=== PATIENT | male | born 1950 | race Asian ===

== ENCOUNTER 2023-01-13 21:08 | Inpatient (IN) | payer MEDICARE, OTHER ==
[~2023-01-13] VITALS: Ht 160 cm; Wt 81.6 kg
[2023-01-13] MEDS ORDERED: MAGNESIUM HYDROXIDE 30 ML UDC PO PRN (22:00)
[2023-01-13] MEDS ORDERED: ACETAMINOPHEN 325 MG TABLET PO PRN (22:00)
[2023-01-13] MEDS ORDERED: MAG HYDROX/AL HYDROX/SIMETH 30 ML UDC PO PRN (22:00)
--- NOTE | 2023-01-13 22:00 | NUR ---
GPS ADMISSION NOTE, RECEIVED PATIENT FROM [facility] / [facility]UL[facility]. PATIENT ARRIVED ON THIS UNIT AT 2200 VIA STRETCHER WITH 2 EMT ESCORTS. PATIENT ADMITTED ON A 5150 HOLD FOR GD. PER HOLD PATIENT HAS BEEN AGITATED, ERRATIC, AND RAMBLING INCOHERENTLY. PATIENT HAS NO VIABLE PLAN FOR SELF CARE AT THIS TIME AND UNABLE TO ANSWER BASIC QUESTIONS DUE TO HIS MENTAL ILLNESS. THE 5150 WAS REVIEWED AND THE DOCUMENTATION IN THE 5150 HOLD APPEARS TO REFLECT THE PRESENTATION OF THE PATIENT. UPON FACE TO FACE ASSESSMENT PATIENT IS NOTED TO BEING HYPERVERBAL, DISHEVELED, DISORGANIZED, CONFUSED, UNCOOPERATIVE, AND NEEDS REDIRECTION. PATIENT IS CURRENTLY LYING IN BED AWAKE, HAS NO S/S OR COMPLAINTS OF PAIN. PATIENT IS DISPLAYING NO S/S OF APPARENT DISTRESS. PATIENT BREATHING IS UNLABORED WITH EQUAL RISE AND FALL OF THE CHEST. PATIENT IS ALERT AND ORIENTATED X 1-2 ON ROOM AIR. PATIENT ASSISTED WITH TURING AND REPOSITIONING Q2HR AND PRN FOR COMFORT AND CIRCULATION. PATIENT HAS NO NEEDS AT THIS TIME. PATIENT DENIES SUICIDE IDEATIONS AND HOMICIDAL IDEATIONS AT THIS TIME. PATIENT REFUSED TO SIGNS ANY PAPER WORK. PATIENT ADVISED OF HIS HOLD AND PATIENT RIGHTS BOOKLET GIVEN. PATIENT IS UNDER THE PSYCHIATRIC CARE OF DR. MYERS AND THE MEDICAL CARE OF DR MORENO. PATIENT BELONGINGS WERE INVENTORIED AND CHECKED FOR CONTRABAND. ALL CONTRABAND REMOVED AND STORED IN PATIENT HALLWAY LOCKER. PATIENT ADVANCED DIRECTIVES PREFERENCE, IMMUNIZATIONS QUESTIONER, NECESSARY PAPERWORK COMPLETED. PATIENT REFUSED SKIN ASSESSMENT. PATIENT ORIENTATED TO ROOM, FLOOR, AND STAFF WITH ALL QUESTIONS ANSWERED. PATIENT EDUCATED ON THE USE OF THE CALL MERLOS. PATIENT BED SIDE RAILS ARE UP X 2 FOR SAFETY. PATIENT BED IS LOCKED, LOW, AND I WILL CONTINUE TO MONITOR THIS PATIENT Q 15 MIN WITH THE HELP OF STAFF TO MAINTAIN SAFETY.
[2023-01-13] MEDS ORDERED: DOCU250C14 PO (22:26)
[2023-01-13] MEDS ORDERED: ATEN100T PO (22:26)
[2023-01-13] MEDS ORDERED: HYDR50TA4 PO (22:26)
[2023-01-13] MEDS ORDERED: AMLO-213 PO (22:27)
[2023-01-13] MEDS ORDERED: OMEP20CA15 PO (22:28)
[2023-01-13] MEDS ORDERED: LEVO5TAB13 PO (22:29)
[2023-01-13] MEDS ORDERED: LIPA1CAP15 PO (22:31)
[2023-01-13] MEDS ORDERED: LISI40TA13 PO (22:33)
[2023-01-13] MEDS ORDERED: OLOP5DRO22 EACHEYE (22:34)
[2023-01-13] MEDS ORDERED: BLOOD SUGAR DIAGNOSTIC 1 EACH STRIP IN ONE (23:30)
[2023-01-14 00:28] VITALS: BP 167/79; TEMP 97.9
[2023-01-14] MEDS: TEMAZEPAM 7.5 MG CAPSULE PO PRN (01:58)
--- NOTE | 2023-01-14 01:58 | NUR ---
GPS RN NOTE, PATIENT HAS A COMPLAINT OF NOT BEING ABLE TO SLEEP AND IS REQUESTING RESTORIL AT THIS TIME. PATIENT VITAL SIGNS ARE STABLE. GAVE RESTORIL 7.5MG PO HS PRN ORDERED. WILL REASSESS FOR INSOMNIA AND I WILL CONTINUE TO MONITOR THIS PATIENT WITH THE HELP OF STAFF.
[2023-01-14] MEDS: PANTOPRAZOLE 40 MG TABLET.DR PO SCH (07:30)
[2023-01-14 08:00] VITALS: BP 151/83; TEMP 98.2; O2SAT 98
[2023-01-14] MEDS: LIPASE/PROTEASE/AMYLASE 1 EACH CAPSULE.DR PO SCH ×3 (08:00→17:46)
[2023-01-14] MEDS: HYDROCHLOROTHIAZIDE 25 MG TABLET PO SCH (09:00)
[2023-01-14] MEDS: DOCUSATE SODIUM 250 MG CAPSULE PO SCH ×2 (09:00→17:00)
[2023-01-14] MEDS: OLOPATADINE HCL 0.1% OPHTH BOTTLE EACHEYE SCH (09:00)
[2023-01-14] MEDS: LISINOPRIL (20MG) 20 MG TABLET PO SCH (09:00)
[2023-01-14] MEDS: ATENOLOL 50 MG TABLET PO SCH (09:00)
[2023-01-14] MEDS ORDERED: AMYLASE/LIPASE/PROTEASE 1 CAP.EC PO SCH (09:00)
[2023-01-14] MEDS: AMLODIPINE BESYLATE 10 MG TABLET PO SCH (09:00)
[2023-01-14] MEDS ORDERED: HYDROCHLOROTHIAZIDE 50 MG TABLET PO SCH (09:00)
[2023-01-14] MEDS: DIVALPROEX SODIUM 125 MG CAP.SPRINK PO SCH ×3 (09:24→17:00)
[2023-01-14] MEDS: OLANZAPINE ZYDIS 5 MG TAB.RAPDIS PO SCH ×3 (09:25→22:00)
[2023-01-14] MEDS: cetrizine 10 MG TABLET PO SCH (09:25)
[2023-01-14 16:00] VITALS: BP 173/87; TEMP 97.8; O2SAT 99
--- NOTE | 2023-01-14 18:49 | NUR ---
NURSE NOTE: PT REFUSED MEDS THROUGHOUT SHIFT. ENCOURAGED MULT TIMES. PT REFUSED EACH TIME.
[2023-01-14 20:29] VITALS: BP 175/81; TEMP 98.1; O2SAT 98
[2023-01-14] MEDS: clonazePAM 0.5 MG TABLET PO PRN (21:14)
[2023-01-14] MEDS ORDERED: LORAZEPAM INJ 2 MG/ML VIAL IM ONE (22:30)
[2023-01-14] MEDS ORDERED: OLANZAPINE 10 MG VIAL IM ONE (22:30)
--- NOTE | 2023-01-14 22:45 | NUR ---
NURSE NOTE: AROUND 2220 PT WAS ACTING ERRATIC, RESTLESS, SAYING THAT HE WANTS TO . HE WAS UNABLE TO BE REDIRECTED. DR MYERS NOTIFIED. DR MYERS ORDERED. ZYPREXA 5 MG IM AND ATIVAN 1 MG IM. BOTH ZYPREXA AND ATIVAN ADMIN TO GLUTEUS MAX. PT DAKOTA WELL. WILL CONT TO MONITOR.
[2023-01-15] MEDS: PANTOPRAZOLE 40 MG TABLET.DR PO SCH (07:30)
[2023-01-15 08:00] VITALS: BP 176/79; TEMP 97.7; O2SAT 98
[2023-01-15] MEDS: LIPASE/PROTEASE/AMYLASE 1 EACH CAPSULE.DR PO SCH ×3 (08:00→17:29)
[2023-01-15] MEDS: DIVALPROEX SODIUM 125 MG CAP.SPRINK PO SCH ×3 (08:59→16:59)
[2023-01-15] MEDS: OLOPATADINE HCL 0.1% OPHTH BOTTLE EACHEYE SCH (08:59)
[2023-01-15] MEDS: HYDROCHLOROTHIAZIDE 25 MG TABLET PO SCH (08:59)
[2023-01-15] MEDS: DOCUSATE SODIUM 250 MG CAPSULE PO SCH ×2 (08:59→16:58)
[2023-01-15] MEDS: LISINOPRIL (20MG) 20 MG TABLET PO SCH (09:00)
[2023-01-15] MEDS: cetrizine 10 MG TABLET PO SCH (09:00)
[2023-01-15] MEDS: ATENOLOL 50 MG TABLET PO SCH (09:00)
[2023-01-15] MEDS: AMLODIPINE BESYLATE 10 MG TABLET PO SCH (09:00)
[2023-01-15] MEDS: OLANZAPINE ZYDIS 5 MG TAB.RAPDIS PO SCH ×2 (09:00→21:32)
--- NOTE | 2023-01-15 09:26 | NUR ---
GE Initial Discharge Note: Patient currently resides at home located [address] [place] [address]. GE will contact pt's /son Brock ([phone]) to discuss treatment/discharge plan. GE will work with the MD, family, and treatment team to help coordinate appropriate discharge.
--- NOTE | 2023-01-15 09:27 | NUR ---
GE Clinical Note: Pt placed on a 5150 hold for GD. Per hold, pt has been agitated at home. Patient currently resides at home located [address] [place] [address]. GE will contact pt's /son Brock ([phone]) to discuss treatment/discharge plan.
--- NOTE | 2023-01-15 11:28 | NUR ---
Patient with increased agitation, shouting and hitting medical personnel was ordered zyprexa im 5mg and ativan inj 1mg, given both at 1128. Charge nurse and aware
[2023-01-15] MEDS ORDERED: LORAZEPAM INJ 2 MG/ML VIAL IM ONE (11:30)
[2023-01-15] MEDS ORDERED: OLANZAPINE 10 MG VIAL IM ONE (11:30)
--- NOTE | 2023-01-15 14:25 | NUR ---
GE Family Contact: GE contacted pt's Nona ([phone]) and attempted to discuss treatment/discharge plan. However, she stated she does not speak Tajik and would want this race and sports book writer to contact son Brock ([phone]). GE contacted pt's son and left a detailed voicemail.
[2023-01-15 19:06] LABS: THYROID STIMULATING HORMONE 1.679 uIU/mL (0.358-3.74)
[2023-01-15 20:17] VITALS: BP 160/92; TEMP 98; O2SAT 98
[2023-01-15] MEDS: TEMAZEPAM 7.5 MG CAPSULE PO PRN (23:01)
--- NOTE | 2023-01-15 23:01 | NUR ---
RN NOTES:- PATIENT UNABLE TO SLEEP PRN RESTORIL 7.5MG PO GIVEN PER PATIENT REQUEST , WILL CONTINUE TO MONITOR.
[2023-01-16] MEDS: clonazePAM 0.5 MG TABLET PO PRN (01:43)
[2023-01-16] MEDS: LIPASE/PROTEASE/AMYLASE 1 EACH CAPSULE.DR PO SCH ×4 (08:19→18:00)
[2023-01-16] MEDS: PANTOPRAZOLE 40 MG TABLET.DR PO SCH (08:20)
[2023-01-16] MEDS: DIVALPROEX SODIUM 125 MG CAP.SPRINK PO SCH ×3 (08:20→17:55)
[2023-01-16] MEDS: cetrizine 10 MG TABLET PO SCH (08:20)
[2023-01-16] MEDS: OLANZAPINE ZYDIS 5 MG TAB.RAPDIS PO SCH ×2 (08:21→21:11)
[2023-01-16] MEDS: DOCUSATE SODIUM 250 MG CAPSULE PO SCH ×3 (08:21→17:55)
[2023-01-16] MEDS: ATENOLOL 50 MG TABLET PO SCH (08:45)
[2023-01-16] MEDS: HYDROCHLOROTHIAZIDE 25 MG TABLET PO SCH (08:46)
[2023-01-16] MEDS: AMLODIPINE BESYLATE 10 MG TABLET PO SCH (08:46)
[2023-01-16] MEDS: LISINOPRIL (20MG) 20 MG TABLET PO SCH (08:46)
[2023-01-16] MEDS: OLOPATADINE HCL 0.1% OPHTH BOTTLE EACHEYE SCH (09:00)
--- NOTE | 2023-01-16 11:46 | NUR ---
RN- NOTES HALDOL 5MG IM, ATIVAN 1MG IM, BENADRYL 25MG IM ORDERED DUE TO PATIENT INCREASED AGITATION, INCREASED AGGRESSION, BANGING ON THE REAL CHAIR TABLE AND CHUA, YELLING PROFANITIES, AND ATTEMPTING TO STRIKE OUT AT STAFF.
[2023-01-16] MEDS ORDERED: diphenhydrAMINE HCL 50 MG/ML VIAL IM ONE (12:00)
[2023-01-16] MEDS ORDERED: HALOPERIDOL LACTATE INJ 5 MG/ML VIAL IM ONE (12:00)
[2023-01-16] MEDS ORDERED: LORAZEPAM INJ 2 MG/ML VIAL IM ONE (12:00)
[2023-01-16 16:00] VITALS: BP 105/83; TEMP 97.9; O2SAT 98
--- NOTE | 2023-01-16 18:58 | NUR ---
RN- NOTES NOTIFIED DR. REID OF NEUROLOGY CONSULT.
[2023-01-16 20:00] VITALS: BP 135/95; TEMP 98; O2SAT 95
[2023-01-17] MEDS: clonazePAM 0.5 MG TABLET PO PRN ×2 (03:57→11:14)
--- NOTE | 2023-01-17 04:00 | NUR ---
PRN KLONOPIN PO MED GIVEN TO PATIENT ORDER DUE TO INCREASED AGITATION, INCREASED AGGRESSION, YELLING AND ATTEMPTING TO STRIKE OUT AT STAFF.
[2023-01-17 08:00] VITALS: BP 123/85; TEMP 97.9; O2SAT 97
[2023-01-17] MEDS: AMLODIPINE BESYLATE 10 MG TABLET PO SCH (08:10)
[2023-01-17] MEDS: LIPASE/PROTEASE/AMYLASE 1 EACH CAPSULE.DR PO SCH ×3 (08:11→17:56)
[2023-01-17] MEDS: HYDROCHLOROTHIAZIDE 25 MG TABLET PO SCH (08:11)
[2023-01-17] MEDS: OLANZAPINE ZYDIS 5 MG TAB.RAPDIS PO SCH ×2 (08:11→21:47)
[2023-01-17] MEDS: DOCUSATE SODIUM 250 MG CAPSULE PO SCH ×2 (08:12→17:56)
[2023-01-17] MEDS: LISINOPRIL (20MG) 20 MG TABLET PO SCH (08:12)
[2023-01-17] MEDS: DIVALPROEX SODIUM 125 MG CAP.SPRINK PO SCH ×2 (08:12→17:56)
[2023-01-17] MEDS: ATENOLOL 50 MG TABLET PO SCH (08:12)
[2023-01-17] MEDS: cetrizine 10 MG TABLET PO SCH (08:13)
[2023-01-17] MEDS: OLOPATADINE HCL 0.1% OPHTH BOTTLE EACHEYE SCH (08:13)
[2023-01-17] MEDS: PANTOPRAZOLE 40 MG TABLET.DR PO SCH (08:15)
--- NOTE | 2023-01-17 09:37 | NUR ---
RNDinoCO: followed up to michelle in [address] when is the REISE HEARING OF THE PT,SHE STATED TO CALL AT 3PM FOR UPDATE.
--- NOTE | 2023-01-17 11:15 | NUR ---
NURSE NOTE: PT AGITATED, BANGING ON TABLE. KLONOPIN PO ADMIN ORDERED. PT DAKOTA WELL. WILL CONT TO MONITOR.
--- NOTE | 2023-01-17 14:41 | NUR ---
RN-CO: DR MYERS CANCELED THE RIESE HEARING FOR TOMM 01/18/23 AT 09:30. SPOKE TO " CHRISTINE [phone] AND VERIFIED THE CANCELATION.
[2023-01-17 16:00] VITALS: BP 164/88; TEMP 98.1; O2SAT 96
[2023-01-17 20:00] VITALS: BP 138/95; TEMP 98; O2SAT 98
[2023-01-17] MEDS: TEMAZEPAM 7.5 MG CAPSULE PO PRN (22:40)
--- NOTE | 2023-01-17 22:40 | NUR ---
PRN RESTORIL 7.5MG GIVEN PER PATIENT'S REQUEST. PATIENT CALM AND COOPERATIVE TO STAFF. ALL NEEDS ATTENDED AND MET. KEPT COMFORTABLE IN BED. SAFETY MEASURE PROVIDED AT ALL TIMES.
[2023-01-18] MEDS: clonazePAM 0.5 MG TABLET PO PRN ×2 (02:58→09:23)
--- NOTE | 2023-01-18 03:07 | NUR ---
PRN KLONOPIN 0.5 MG GIVEN BY PO. PATIENT APPEARS TO BE AGITATED, TRYING TO GET OUT OF BED SHOUTING AND BANGING THE SIDE RAILS. SAFETY MAINTAINS. WILL CONTINUE TO MONITOR.
[2023-01-18 08:00] VITALS: BP 161/89; TEMP 97.6; O2SAT 95
[2023-01-18] MEDS: cetrizine 10 MG TABLET PO SCH (09:00)
[2023-01-18] MEDS: LISINOPRIL (20MG) 20 MG TABLET PO SCH (09:28)
[2023-01-18] MEDS: LIPASE/PROTEASE/AMYLASE 1 EACH CAPSULE.DR PO SCH ×3 (09:30→18:47)
[2023-01-18] MEDS: OLANZAPINE ZYDIS 5 MG TAB.RAPDIS PO SCH ×2 (09:31→21:19)
[2023-01-18] MEDS: HYDROCHLOROTHIAZIDE 25 MG TABLET PO SCH (09:32)
[2023-01-18] MEDS: AMLODIPINE BESYLATE 10 MG TABLET PO SCH (09:32)
[2023-01-18] MEDS: PANTOPRAZOLE 40 MG TABLET.DR PO SCH (09:33)
[2023-01-18] MEDS: DIVALPROEX SODIUM 125 MG CAP.SPRINK PO SCH ×2 (09:33→18:11)
[2023-01-18] MEDS: DOCUSATE SODIUM 250 MG CAPSULE PO SCH ×2 (09:34→18:11)
--- NOTE | 2023-01-18 10:09 | NUR ---
Court Notification: SW attempted to contact pt's son Brock ([phone]) to notify of [phone] but was unavailable.
--- NOTE | 2023-01-18 10:09 | NUR ---
Court Hearing: Patient's court hearing for 0130 was today and it was upheld for GD.
[2023-01-18] MEDS: OLOPATADINE HCL 0.1% OPHTH BOTTLE EACHEYE SCH (11:27)
[2023-01-18] MEDS: ATENOLOL 50 MG TABLET PO SCH (11:29)
[2023-01-18 16:00] VITALS: BP 149/78; TEMP 98; O2SAT 94
[2023-01-18 20:00] VITALS: BP 112/70; TEMP 98.1; O2SAT 98
[2023-01-19 08:00] VITALS: BP 164/78; TEMP 97.8; O2SAT 98
[2023-01-19] MEDS: HYDROCHLOROTHIAZIDE 25 MG TABLET PO SCH (08:39)
[2023-01-19] MEDS: DOCUSATE SODIUM 250 MG CAPSULE PO SCH ×2 (08:39→17:10)
[2023-01-19] MEDS: PANTOPRAZOLE 40 MG TABLET.DR PO SCH (08:39)
[2023-01-19] MEDS: cetrizine 10 MG TABLET PO SCH (08:39)
[2023-01-19] MEDS: LIPASE/PROTEASE/AMYLASE 1 EACH CAPSULE.DR PO SCH ×3 (08:39→17:11)
[2023-01-19] MEDS: LISINOPRIL (20MG) 20 MG TABLET PO SCH (08:39)
[2023-01-19] MEDS: DIVALPROEX SODIUM 125 MG CAP.SPRINK PO SCH ×2 (08:40→17:10)
[2023-01-19] MEDS: AMLODIPINE BESYLATE 10 MG TABLET PO SCH (08:40)
[2023-01-19] MEDS: OLOPATADINE HCL 0.1% OPHTH BOTTLE EACHEYE SCH (08:44)
--- NOTE | 2023-01-19 08:44 | NUR ---
CALLED FOR PATIENT TO COME DOWN FOR CT THAT WAS ORDERED. CHARGE STEFANIE INFORMED MOA THAT THEY WERE WAITING FOR ONE MORE QUALITY ASSURANCE ASSOCIATE IN ORDER FOR PT TO COME DOWN.
[2023-01-19] MEDS: OLANZAPINE ZYDIS 5 MG TAB.RAPDIS PO SCH ×2 (09:05→21:13)
[2023-01-19] MEDS: ATENOLOL 50 MG TABLET PO SCH (09:06)
--- NOTE | 2023-01-19 09:07 | NUR ---
Medication note REMOVED ATENOLOL ONCE, PREVIOUS REGISTERED REMOVED BUT MEDICATION WAS NOT TAKEN FROM OMNICELL WHEN REMOVING MEDICATION. MEDICATION WAS SKIPPED BY MISTAKE WHEN WITHDRAWING MEDICATION. NOTIFIED CHARGE NURSE.
--- NOTE | 2023-01-19 10:50 | NUR ---
GE FAMILY CONTACT: SW ATTEMPTED TO CONTACT PT'S SON DELIA ([phone]) AND DISCUSSED TREATMENT PLAN. HE STATED THAT HE WILL POSSIBLY WANT A NURSING FACILITY FOR PT BUT WOULD WANT TO KNOW CLOSER TO DC TO MAKE THAT DECISION.
[2023-01-19 16:00] VITALS: BP 149/79; TEMP 97.8; O2SAT 96
[2023-01-19 20:00] VITALS: BP 138/70; TEMP 98; O2SAT 98
[2023-01-20 08:00] VITALS: BP 157/78; TEMP 97.8; O2SAT 98
[2023-01-20] MEDS: PANTOPRAZOLE 40 MG TABLET.DR PO SCH (08:21)
[2023-01-20] MEDS: DIVALPROEX SODIUM 125 MG CAP.SPRINK PO SCH ×2 (08:21→17:50)
[2023-01-20] MEDS: cetrizine 10 MG TABLET PO SCH (08:21)
[2023-01-20] MEDS: LIPASE/PROTEASE/AMYLASE 1 EACH CAPSULE.DR PO SCH ×3 (08:21→17:49)
[2023-01-20] MEDS: ATENOLOL 50 MG TABLET PO SCH (08:22)
[2023-01-20] MEDS: AMLODIPINE BESYLATE 10 MG TABLET PO SCH (08:22)
[2023-01-20] MEDS: DOCUSATE SODIUM 250 MG CAPSULE PO SCH ×2 (08:22→17:49)
[2023-01-20] MEDS: OLANZAPINE ZYDIS 5 MG TAB.RAPDIS PO SCH ×2 (08:22→21:09)
[2023-01-20] MEDS: HYDROCHLOROTHIAZIDE 25 MG TABLET PO SCH (08:23)
[2023-01-20] MEDS: LISINOPRIL (20MG) 20 MG TABLET PO SCH (08:23)
[2023-01-20] MEDS: OLOPATADINE HCL 0.1% OPHTH BOTTLE EACHEYE SCH (08:25)
[2023-01-20 16:00] VITALS: BP 146/89; TEMP 97.8; O2SAT 94
[2023-01-20 20:00] VITALS: BP 107/73; TEMP 98.1; O2SAT 97
[2023-01-21 08:00] VITALS: BP 173/81; TEMP 97.8; O2SAT 94
[2023-01-21] MEDS: PANTOPRAZOLE 40 MG TABLET.DR PO SCH (08:09)
[2023-01-21] MEDS: LIPASE/PROTEASE/AMYLASE 1 EACH CAPSULE.DR PO SCH ×3 (08:09→17:10)
[2023-01-21] MEDS: OLOPATADINE HCL 0.1% OPHTH BOTTLE EACHEYE SCH (09:00)
[2023-01-21] MEDS: HYDROCHLOROTHIAZIDE 25 MG TABLET PO SCH (09:02)
[2023-01-21] MEDS: AMLODIPINE BESYLATE 10 MG TABLET PO SCH (09:02)
[2023-01-21] MEDS: DIVALPROEX SODIUM 125 MG CAP.SPRINK PO SCH ×2 (09:03→17:10)
[2023-01-21] MEDS: ATENOLOL 50 MG TABLET PO SCH (09:03)
[2023-01-21] MEDS: LISINOPRIL (20MG) 20 MG TABLET PO SCH (09:03)
[2023-01-21] MEDS: cetrizine 10 MG TABLET PO SCH (09:03)
[2023-01-21] MEDS: OLANZAPINE ZYDIS 5 MG TAB.RAPDIS PO SCH ×2 (09:03→21:27)
[2023-01-21] MEDS: DOCUSATE SODIUM 250 MG CAPSULE PO SCH ×2 (09:03→17:10)
[2023-01-21 16:00] VITALS: BP 100/67; TEMP 97.8; O2SAT 94
--- NOTE | 2023-01-21 18:55 | NUR ---
RN- CLOSING NOTES PATIENT AWAKE, PACING IN ROOM, BREATHING EVEN AND NON LABORED WITH NO S/S OF DISTRESS. PATIENT IS COOPERATIVE, GUARDED, CONFUSED, DISORIENTED, DEPRESSED, ANXIOUS, LABILE, AND ISOLATIVE. PATIENT IS MEDICATION COMPLIANT. ENCOURAGED PATIENT TO LEAVE ROOM AND SOCIALIZE WITH STAFF, PATIENT REFUSED. DENIES SI/HI BUT IS CONFUSED AT THIS TIME. WILL CONTINUE TO MONITOR Q 15 MINUTES FOR SAFETY AND BEHAVIOR.
--- NOTE | 2023-01-21 19:30 | NUR ---
GPS RN NOTES PATIENT REFUSED SKIN ASSESSMENT. EXPLAINED RISK/BENEFITS BUT PT STILL REFUSED.
[2023-01-21 20:00] VITALS: BP 169/86; TEMP 98.2; O2SAT 96
[2023-01-22] MEDS: PANTOPRAZOLE 40 MG TABLET.DR PO SCH (07:28)
[2023-01-22] MEDS: LIPASE/PROTEASE/AMYLASE 1 EACH CAPSULE.DR PO SCH ×3 (07:28→17:38)
[2023-01-22 08:00] VITALS: BP 145/73; TEMP 97.8; O2SAT 96
[2023-01-22] MEDS: cetrizine 10 MG TABLET PO SCH (09:12)
[2023-01-22] MEDS: OLANZAPINE ZYDIS 5 MG TAB.RAPDIS PO SCH ×2 (09:12→21:10)
[2023-01-22] MEDS: DOCUSATE SODIUM 250 MG CAPSULE PO SCH ×2 (09:12→17:38)
[2023-01-22] MEDS: DIVALPROEX SODIUM 125 MG CAP.SPRINK PO SCH ×2 (09:12→17:38)
[2023-01-22] MEDS: HYDROCHLOROTHIAZIDE 25 MG TABLET PO SCH (09:13)
[2023-01-22] MEDS: ATENOLOL 50 MG TABLET PO SCH (09:14)
[2023-01-22] MEDS: LISINOPRIL (20MG) 20 MG TABLET PO SCH (09:14)
[2023-01-22] MEDS: AMLODIPINE BESYLATE 10 MG TABLET PO SCH (09:14)
[2023-01-22] MEDS: OLOPATADINE HCL 0.1% OPHTH BOTTLE EACHEYE SCH (09:23)
--- NOTE | 2023-01-22 10:37 | NUR ---
FACILITY REFERRAL: GE [facility] ([phone]) FOR PLACEMENT. SW SENT H & P, PROGRESS NOTES, AND MEDICATION LIST.
--- NOTE | 2023-01-22 11:17 | NUR ---
GE FAMILY CONTACT: GE CONTACTED PT'S SON [phone] AND GAVE UPDATES ON PT. FAMILY WANTS FACILITY. GE CURRENTLY WORKING ON FINDING FACILITY.
[2023-01-22 16:00] VITALS: BP 148/77; TEMP 97.8; O2SAT 98
--- NOTE | 2023-01-22 18:46 | NUR ---
GPS RN CLOSING NOTES: PT IN BED AWAKE. PT HAD EPISODES OF WALKING AROUND THE UNIT WITH WALKER HE STATED "I WANT TO EXERCISE". ALERT AND ORIENTED X 2 AND ABLE TO MAKE NEEDS KNOWN. PT DENIES ANY PAIN AT THIS TIME. PT IS COMPLIANT IN TAKING HER MEDICATIONS.WILL ENDORSE TO CONSTRUCTION EQUIPMENT MECHANIC HELPER NURSE FOR CONTINUITY OF CARE.
[2023-01-22 20:25] VITALS: BP 157/80; TEMP 98.2; O2SAT 97
[2023-01-23 08:00] VITALS: BP 159/79; TEMP 97.8; O2SAT 98
[2023-01-23] MEDS: LIPASE/PROTEASE/AMYLASE 1 EACH CAPSULE.DR PO SCH ×3 (08:14→17:24)
[2023-01-23] MEDS: PANTOPRAZOLE 40 MG TABLET.DR PO SCH (08:14)
[2023-01-23] MEDS: OLANZAPINE ZYDIS 5 MG TAB.RAPDIS PO SCH ×2 (08:14→21:04)
[2023-01-23] MEDS: cetrizine 10 MG TABLET PO SCH (08:14)
[2023-01-23] MEDS: DIVALPROEX SODIUM 125 MG CAP.SPRINK PO SCH ×2 (08:14→17:25)
[2023-01-23] MEDS: DOCUSATE SODIUM 250 MG CAPSULE PO SCH ×2 (08:15→17:25)
[2023-01-23] MEDS: HYDROCHLOROTHIAZIDE 25 MG TABLET PO SCH (08:15)
[2023-01-23] MEDS: LISINOPRIL (20MG) 20 MG TABLET PO SCH (08:15)
[2023-01-23] MEDS: ATENOLOL 50 MG TABLET PO SCH (08:16)
[2023-01-23] MEDS: AMLODIPINE BESYLATE 10 MG TABLET PO SCH (08:16)
[2023-01-23] MEDS: OLOPATADINE HCL 0.1% OPHTH BOTTLE EACHEYE SCH (08:17)
[2023-01-23 16:00] VITALS: BP 138/73; TEMP 98.8; O2SAT 98
[2023-01-23 21:55] VITALS: BP 123/60; TEMP 98.1; O2SAT 97
[2023-01-24 08:00] VITALS: BP 152/75; TEMP 98.6; O2SAT 96
[2023-01-24] MEDS: LIPASE/PROTEASE/AMYLASE 1 EACH CAPSULE.DR PO SCH ×3 (08:03→17:49)
[2023-01-24] MEDS: DOCUSATE SODIUM 250 MG CAPSULE PO SCH ×2 (08:04→16:38)
[2023-01-24] MEDS: OLANZAPINE ZYDIS 5 MG TAB.RAPDIS PO SCH ×2 (08:04→21:16)
[2023-01-24] MEDS: DIVALPROEX SODIUM 125 MG CAP.SPRINK PO SCH ×2 (08:04→16:39)
[2023-01-24] MEDS: PANTOPRAZOLE 40 MG TABLET.DR PO SCH (08:04)
[2023-01-24] MEDS: cetrizine 10 MG TABLET PO SCH (08:05)
[2023-01-24] MEDS: OLOPATADINE HCL 0.1% OPHTH BOTTLE EACHEYE SCH (08:06)
[2023-01-24] MEDS: LISINOPRIL (20MG) 20 MG TABLET PO SCH (08:11)
[2023-01-24] MEDS: HYDROCHLOROTHIAZIDE 25 MG TABLET PO SCH (08:11)
[2023-01-24] MEDS: ATENOLOL 50 MG TABLET PO SCH (08:12)
[2023-01-24] MEDS: AMLODIPINE BESYLATE 10 MG TABLET PO SCH (08:12)
--- NOTE | 2023-01-24 11:05 | NUR ---
Facility Contact: GE received a call from [facility] from [facility] ([phone]) (F:[phone]) for placement. SW sent H & P,progress notes, and medication list.
--- NOTE | 2023-01-24 11:57 | NUR ---
GE FAMILY CONTACT: GE CONTACTED PT'S SON DELIA ([phone]) AND NOTIFIED THAT HE IS ACCEPTED AT [facility].
--- NOTE | 2023-01-24 12:12 | NUR ---
Facility Contact: SW received a call from [facility] from [facility] ([phone]) (F:[phone]) who denied pt.
--- NOTE | 2023-01-24 13:20 | NUR ---
GE FAMILY CONTACT: SW CONTACTED PT'S SON DELIA ([phone]) STATED THAT THEY WOULD WANT PT TO COME BACK HOME.
--- NOTE | 2023-01-24 13:39 | NUR ---
GE Coordination of Care: Pt will follow up with Parliamentary Counsel, Anabelle Covarrubias located at [address], [place] [address]; ([phone]) who will monitor and provide patients antipsychotic medication list. SW contacted the doctor office and left a voicemail to make a follow up appointment and that pt will discharge 01/25.
[2023-01-24 16:00] VITALS: BP 147/74; TEMP 98.6; O2SAT 99
--- NOTE | 2023-01-24 19:30 | NUR ---
GPS RN NOTE, RECEIVED PATIENT AWAKE AND IN BED, NO S/S OR COMPLAINTS OF PAIN AT THIS TIME. PATIENT IS DISPLAYING NO S/S OF APPARENT DISTRESS AT THIS TIME. PATIENT BREATHING IS UNLABORED WITH EQUAL RISE AND FALL OF THE CHEST. PATIENT IS ALERT AND ORIENTED X 2 ON ROOM AIR WITH A SPO2 95%. PATIENT IS COMPLAINT WITH MEDICATIONS, CONFUSED AT TIMES, PARANOID, ANXIOUS AT TIMES, MAKES NEEDS KNOWN, MOTIVATED TO SELF CARE, AND COOPERATIVE. PATIENT DENIES SUICIDAL AND HOMICIDAL IDEATIONS AT THIS TIME. PATIENT ASSISTED WITH TURNING AND REPOSITIONING Q2HR AND PRN FOR COMFORT AND CIRCULATION. PATIENT HAS NO NEEDS AT THIS TIME. PATIENT EDUCATED ON THE USE OF THE CALL MERLOS. PATIENT BED SIDE RAILS UP X 2 FOR SAFETY. PATIENT BED IS LOCKED, LOW, WITH BED ALARM ON. WILL CONTINUE TO MONITOR THIS PATIENT Q15 MINUTES WITH THE HELP OF STAFF TO MAINTAIN SAFETY.
[2023-01-24 20:00] VITALS: BP 150/92; TEMP 98.5; O2SAT 97
--- NOTE | 2023-01-25 07:10 | NUR ---
EARLY CHILDHOOD AIDE CLASSROOM OPENING NOTE PATIENT AWAKE, ALERT AND ORIENTED X3. PATIENT DENIES PAIN, NO S/S OF DISCOMFORT NOTED. PATIENT IS WALKING IN HIS ROOM. GAIT STEADY. SAFETY MEASURES IN PLACE: BED LOCKED TO THE LOWEST POSITION. TABLE WITHIN REACH. CONT. TO MONITOR.
[2023-01-25 08:00] VITALS: BP 152/83; TEMP 98; O2SAT 99
--- NOTE | 2023-01-25 08:08 | NUR ---
SW Discharge Note: Patient will discharge back home located at [address] [place] [address]; ([phone]). Patients Gonzalez ([phone]) will car pick up driver pt at 2PM. Pt is alert and oriented x2. Pt happy to be going back home. Pt denies suicidal or homicidal ideation. Pt denies visual/auditory hallucinations. Pt will follow up with Receiver Setter, Anabelle Covarrubias located at [address] [facility] [address], [place] [address]; ([phone]) who will monitor and provide patients antipsychotic medication list. Psychiatry referrals were given: [facility] ([phone]), [facility] ([phone]), [facility] ([phone]). Pt presents with euthymic mood and congruent affect.
[2023-01-25] MEDS: LIPASE/PROTEASE/AMYLASE 1 EACH CAPSULE.DR PO SCH ×2 (08:10→13:00)
[2023-01-25] MEDS: cetrizine 10 MG TABLET PO SCH (08:10)
[2023-01-25] MEDS: DOCUSATE SODIUM 250 MG CAPSULE PO SCH (08:10)
[2023-01-25] MEDS: DIVALPROEX SODIUM 125 MG CAP.SPRINK PO SCH (08:10)
[2023-01-25] MEDS: PANTOPRAZOLE 40 MG TABLET.DR PO SCH (08:10)
[2023-01-25] MEDS: ATENOLOL 50 MG TABLET PO SCH (08:15)
[2023-01-25] MEDS: HYDROCHLOROTHIAZIDE 25 MG TABLET PO SCH (08:16)
[2023-01-25 08:17] VITALS: BP 154/83
[2023-01-25] MEDS: AMLODIPINE BESYLATE 10 MG TABLET PO SCH (08:17)
[2023-01-25] MEDS: LISINOPRIL (20MG) 20 MG TABLET PO SCH (08:17)
[2023-01-25] MEDS: OLANZAPINE ZYDIS 5 MG TAB.RAPDIS PO SCH (08:28)
[2023-01-25] MEDS: OLOPATADINE HCL 0.1% OPHTH BOTTLE EACHEYE SCH (08:37)
--- NOTE | 2023-01-25 08:38 | NUR ---
RN-CO: DR CALL GAVE AN ORDER TO DISCONTINUE HOLD AND DISCHARGE PT HOME TODAY. PRIMARY NURSE CIPRIANO Pineda MADE AWARE.
--- NOTE | 2023-01-25 12:00 | NUR ---
RN-CO: Patient was seen and examined by Danilo Caballero NP and medically cleared the patient. Patient remains calm and cooperative to care. Denies suicidal and homicidal ideations, denies auditory and visual hallucinations.
--- NOTE | 2023-01-25 13:00 | NUR ---
MANAGER BAR DISCHARGE NOTE PATIENT IS GOING HOME, PATIENT HAS BEEN DISCHARGED BY PSYCHIATRIST AND PRIMARY PHYSICIAN. PATIENT REFUSED TO HAVE MEDICATION PRIOR DISCHARGE.
--- NOTE | 2023-01-25 13:10 | NUR ---
MOLDING PRESS OPERATOR DISCHARGE NOTE PATIENT AWAKE, ALERT AND ORIENTED X4. PATIENT STABLE FOR DISCHARGE PER PSYCHIATRIST AND PRIMARY PHYSICIAN. NO S/S OF SUICIDAL ATTEMPT NOTED. PATIENT IS CALM. DISCHARGE INSTRUCTIONS GIVEN TO PATIENT AND ALSO TO PATIENT'S . PATIENT AND PATIENT'S VERBALIZED UNDERSTANDING INSTRUCTIONS, INCLUDING PRESCRIPTIONS TO TAKE TO THE PHARMACY. MEDICATIONS NAME, PURPOSE AND POSSIBLE SIDE EFFECTS EXPLAINED TO PATIENT AND ALSO TO PATIENT'S . PATIENT HAS AGREE TO GO HOME ACCOMPANIED BY HIS . PATIENT SIGNED BELONGING FORM, PATIENT'S SIGNED DISCHARGE FORM. PATIENT WILL FOLLOW UP WITH CIRCULAR SAWYER HELPER IN 1-2 WEEKS, WELLINGTON TRUJILLO LOCATED AT [address] [place] [address]. [address], [place] [address]; [phone]. PSYCHIATRY REFERRALS WERE GIVEN : [phone], [facility] ([phone]. [facility] ([phone]). PATIENT GOING HOME ACCOMPANIED BY PATIENT'S AND STAFF NURSE VIA W/C.
== END 2023-01-25 13:00 | disposition home or self-care (01) | DRG 885 ==
LOC: GPS 21:14
PROVIDERS: ADMIT Psychiatry & Neurology Psychiatry; ATTEND Student in an Organized Health Care Education/Training Program
DX: F29 Unspecified psychosis not due to a substance or known physiological condition (principal); F03.92 Unspecified dementia, unspecified severity, with psychotic disturbance; F03.93 Unspecified dementia, unspecified severity, with mood disturbance; F39 Unspecified mood [affective] disorder; E66.9 Obesity, unspecified; F32.A Depression, unspecified; F41.9 Anxiety disorder, unspecified; I10 Essential (primary) hypertension; Z73.6 Limitation of activities due to disability; M62.81 Muscle weakness (generalized); Z68.31 Body mass index [BMI] 31.0-31.9, adult; Z91.199 Patient's noncompliance with other medical treatment and regimen due to unspecified reason
CPT/HCPCS: 36415; 70450-TC; 80164-TC; 82607-TC; 84443-TC; J1200; J1630; J2060; J3490